=== PATIENT | female | born 1985 | race Caucasian/White ===

== ENCOUNTER 2016-08-03 11:08 | Emergency (ER) | payer SELFPAY ==
--- NOTE | ~2016-08-03 | CR20 ---
[facility] A Service of [facility] RADIOLOGY TEXT RESULTS PATIENT: PETE CHACON LOCATION: CFTX : 87 UNIT #: [id number] AGE: [address]: Yancy Julio APRN SEX: F ORDER DR: [id number] [facility] [address] [place], [place] [address] [id number] E MR#: [id number] Acc #: [id number] NAME: PETE CHACON : 1985 SEX: F STUDY DATE/TIME: 08/03/2016 11:26 UNIT: [facility] ROOM: STUDY DESCRIPTION: CR Ankle Min 3 Views Lt Attending Physician: Yancy Julio A.P.R.N. Ordering Physician: Ed Doctor [id number] [facility] Primary Care Physician: Primary Care Physician No MEDICAL IMAGING REPORT This report is preliminary unless electronic signature is present EXAM Left ankle 3 views 08/03/2016 1126 hours HISTORY Twisting injury of the ankle today. Patient complains of anterior and lateral pain and swelling today. COMPARISON None. FINDINGS AP, lateral and oblique views demonstrate lateral soft tissue swelling with lateral view suggesting an ankle joint effusion. There is no fracture or dislocation. IMPRESSION Soft tissue swelling with possible ankle joint effusion. There is no fracture, dislocation or degenerative change. Dictated by... Essence Magana M.D. THIS IS AN ELECTRONICALLY VERIFIED REPORT Essence Magana M.D. at 08/03/2016 12:50 PM HERNANDO/elsi TD: 08/03/2016 12:12 JOB #: [id number] MEDICAL IMAGING REPORT Page 1 of 1 COPY
== END 2016-08-03 12:07 | disposition home or self-care (01) ==
LOC: CED 11:08 → CFTX 11:08
DX: S93.412A Sprain of calcaneofibular ligament of left ankle, initial encounter (principal); S93.492A Sprain of other ligament of left ankle, initial encounter; W01.0XXA Fall on same level from slipping, tripping and stumbling without subsequent striking against object, initial encounter
CPT/HCPCS: 29540; 73610; 99283